=== PATIENT | male | born 1945 | race Caucasian/White ===

== ENCOUNTER 2016-12-21 07:03 | Day surgery (SDC) | payer MEDICARE ==
[2016-12-21] MEDS ORDERED: LIDOCAINE 2% MDV (20MG/ML) 20ML VIAL IV ONE (13:29)
[2016-12-21] MEDS ORDERED: PROPOFOL 10 MG/ML VIAL IV ONE (13:29)
[2016-12-21] MEDS ORDERED: MIDAZOLAM HCL 2MG/2ML VIAL IV ONE (13:29)
--- NOTE | 2016-12-25 15:30 | Operative Note ---
DATE OF SURGERY: 12/21/2016 REQUESTING PHYSICIAN: Corazon Lamar MD, FACP SURGEON: Denise Belcher MD POSTOPERATIVE DIAGNOSES: 1. Left-sided colonic diverticulosis. 2. Poor bowel preparation. Cannot rule out any significant lesions. OPERATION: COLONOSCOPY and exam. REASON FOR PROCEDURE: This is an 82-year-old male with average risk for colorectal cancer who presented for screening colonoscopy. SEDATION: Sedation as per anesthesia. Pulse oximetry was monitored throughout the duration of the procedure to maintain O2 saturation of 90% or greater. Supplemental oxygen was administered via nasal cannula. Cardiac and vital signs were monitored throughout the duration of the procedure and they were stable. PROCEDURE: Description of the procedure of colonoscopy, risks, and alternatives to the procedure including the risk of bleeding and perforation among others were explained to the patient who voiced understanding and agreed to have the procedure done. A physical examination was performed and the patient was found stable for sedation. The patient was then placed in the left lateral position and sedation was initiated. Digital rectal exam was performed and showed small external hemorrhoids with no palpable rectal masses. A lubricated Olympus PCF-180AL colonoscope was then inserted into the rectum under direct visualization and was advanced to the cecum without difficulty. The ileocecal valve and appendiceal orifice were identified and photographed. The colonic mucosa was carefully examined upon insertion of the colonoscope. There were scattered diverticula noted in the sigmoid and descending colon. The bowel preparation was suboptimal. Cannot rule out any significant lesions in the sigmoid colon, transverse colon, ascending colon. The colonoscope was then withdrawn while carefully examining the colonic mucosal surfaces. No other lesions were noted. In the rectum, retroflexion was performed and grade 1 internal hemorrhoids were noted. The colonoscope was then withdrawn and the procedure was terminated. The patient tolerated the procedure well without any complications. The patient remained with stable vital signs and was sent to the recovery room. PLAN AND RECOMMENDATIONS: 1. The patient is to be on a high-fiber diet. 2. The patient is to have repeat colonoscopy for screening within a year given the poor bowel preparation. Thank you for allowing me to participate in the care of this patient. Denise Belcher MD CC: CORAZON LAMAR MD, [facility]
== END 2016-12-21 09:30 | disposition home or self-care (01) ==
LOC: HOP 07:03
PROVIDERS: ATTEND Internal Medicine Gastroenterology
DX: Z12.11 Encounter for screening for malignant neoplasm of colon (principal); K57.30 Diverticulosis of large intestine without perforation or abscess without bleeding; I48.91 Unspecified atrial fibrillation; Z79.01 Long term (current) use of anticoagulants
CPT/HCPCS: 00810; G0121

== ENCOUNTER 2017-05-06 11:56 | Emergency (ER) | payer MEDICARE ==
--- NOTE | 2017-05-06 12:17 | Emergency Department Record ---
History of Present Illness - General Chief complaint: Extremity Problem Stated complaint: LEG INJURY Time Seen by Provider: 05/06/17 12:03 Source: Patient, Family Mode of Arrival: Ambulatory Limitations: No limitations - History of Present Illness Initial comments: 71 yo male presents after a fall about 10 days ago. He was pushing a cart and fell injuring his right thigh and right lower leg. He has developed bruising over the area over the last 10 days. No pain with walking or weight bearing. He has bruising to the right lateral thigh and the right foot and ankle. No weakness. No numbness or tingling. No coordination troubles. He has a tender nodule just above the ankle. He is on Eliquis for atrial fibrillation. No other injuries or complaints from the fall. MD Complaint: Extremity pain, Extremity swelling (bruising) Onset/Timin -: Days(s) Location: Right, Lower Leg History of Same: Yes Radiation: Distal Severity scale (1-10): 4 Quality: Aching Consistency: Constant Improves with: Nothing Worsens with: Palpation, Weight bearing Associated Symptoms: Denies other symptoms - Related Data Home Medications Medication Instructions Recorded Confirmed Last Taken Multivit-Min/FA/Lycopen/Lutein 1 each PO DAILY 05/06/17 05/06/17 1 Day Ago [Centrum Silver Tablet] ~05/05/17 Previous Rx's Medication Instructions Recorded Metoprolol Succinate [Toprol Xl] 12.5 mg PO DAILY #30 tab.er.24h 06/24/16 Allergies Allergy/AdvReac Type Severity Reaction Status Date / Time No Known Drug Allergies Allergy Verified 05/06/17 12:11 Travel Screening - Travel/Exposure Within Last 30 Days Have you traveled within the last 30 days?: No - Travel/Exposure Within Last Year Have you traveled outside the [place] in the last year?: No - Additonal Travel Details Have you been exposed to anyone with a communicable illness?: No - Travel Symptoms Symptom Screening: None Review of Systems Constitutional: Denies: Chills, Fever, Malaise, Weakness Eyes: Denies: Eye discharge ENT: Reports: Other (nose skin cancer). Denies: Congestion, Throat pain Respiratory: Denies: Cough Cardiovascular: Denies: Arrhythmia, Chest pain, Dyspnea on exertion, Palpitations, Syncope Endocrine: Denies: Fatigue Gastrointestinal: Denies: Abdominal pain, Diarrhea, Nausea, Vomiting Genitourinary: Denies: Hematuria Musculoskeletal: Reports: As per HPI, Arthralgia Skin: Reports: As per HPI, Change in color (bruising as noted) Neurological: Denies: Headache Psychiatric: Denies: Anxiety Hematological/Lymphatic: Reports: Easy bruising. Denies: Blood Clots, Easy bleeding, Swollen glands Past Medical History - SOCIAL HISTORY Smoking Status: Never smoker Alcohol Use: None Drug Use: None - RESPIRATORY Hx Respiratory Disorders: No - CARDIOVASCULAR Hx Cardio Disorders: Yes Hx Irregular Heartbeat: Yes (a fib) - NEURO Hx Neuro Disorders: No - GI Hx GI Disorders: No - Hx Genitourinary Disorders: No - ENDOCRINE Hx Endocrine Disorders: No - MUSCULOSKELETAL Hx Musculoskeletal Disorders: No - PSYCH Hx Psych Problems: No - HEMATOLOGY/ONCOLOGY Hx Hematology/Oncology Disorders: Yes Hx Cancer: Yes (BCC forehead & nose) Hx Chemotherapy: No Hx Radiation Therapy: No Family Medical History Any Significant Family History?: Yes Hx Cancer: Father *Cancer Comment: prostate Hx Dementia: Mother Hx Stroke: Father *Stroke Comment: @ age 90 Physical Exam - General General Appearance: Alert, Oriented x3, Cooperative, No acute distress Limitations: No limitations - Head Head exam: Atraumatic, Normocephalic, Normal inspection - Eye Eye exam: Normal appearance. negative: Conjunctival injection, Periorbital swelling, Scleral icterus - ENT ENT exam: Normal exam, Mucous membranes moist Ear exam: Normal external inspection Nasal Exam: Normal inspection Mouth exam: Normal external inspection - Neck Neck exam: Normal inspection - Respiratory Respiratory exam: Normal lung sounds bilaterally. negative: Respiratory distress - Cardiovascular Cardiovascular Exam: Regular rate, Normal rhythm, Normal heart sounds Peripheral Pulses: 2+: Dorsalis Pedis (R) - GI/Abdominal GI/Abdominal exam: Soft. negative: Tenderness - Rectal Rectal exam: Deferred - exam: Deferred - Extremities Extremities exam: Full ROM, Normal capillary refill, Tenderness (3cm tender distal lower anterior leg nodular hematoma). negative: Normal inspection, Calf tenderness, Joint swelling, Pedal edema Image of Full Body: 1 - superficial bruising, soft, no hematoma palpable 2 - bruising, 3cm hematoma anteior distal lower leg, intact pulsed, intact CR, no weakness, no foot drop - Back Back exam: Reports: Normal inspection. Denies: CVA tenderness (R), CVA tenderness (L) - Neurological Neurological exam: Alert, Oriented X3 - Psychiatric Psychiatric exam: Normal affect, Normal mood - Skin Skin exam: Other (bruising) Course Vital Signs 05/06/17 12:05 Temperature 97.7 F Pulse Rate 62 Respiratory 18 Rate Blood Pressure 135/71 Pulse Ox 99 - Reevaluation(s) Reevaluation #1: The patient has superficial bruising Given the distal small anterior leg hematoma an XR was ordered No signs of DVT and unlikely on Eliquis 05/06/17 12:17 05/06/17 12:46 XR no fracture Soft tissue swelling DC with supportive treatment instructions Disposition Disposition: Discharge Clinical Impression: Ecchymosis, Hematoma Disposition: Home, Self-Care Condition: (1) Good Instructions: Hematoma (ED), Ecchymosis (ED) Additional Instructions: Expect bruising to last 4-6 weeks Ice the tender swollen area and wear support hose on the right leg Call your doctor to recheck the area in the next one week Return if you have pain, weak, numb, warm or cold or any new concerns Forms: Patient Portal Access Time of Disposition: 12:47 Quality - Quality Measures Quality Measures: N/A - Blood Pressure Screening Does Patient Have Any of the Following: No Blood Pressure Classification: Pre-Hypertensive BP Reading Systolic Measurement: 135 Diastolic Measurement: 71 Screening for High Blood Pressure: < Pre-Hypertensive BP, F/U Documented > [ [id number]] Pre-Hypertensive Follow-up Interventions: Referral to alternative/primary care provider.
--- NOTE | 2017-05-07 11:09 | RADIOLOGY REPORT ---
EXAM: RIGHT ANKLE HISTORY: INJURY. TECHNIQUE: Three views of the right ankle were obtained. Comparison: None. FINDINGS: Focal soft tissue swelling along the anterolateral aspect of the distal leg. No acute osseous abnormality. The ankle mortise is intact. IMPRESSION: SOFT TISSUE SWELLING ABOVE. NO ACUTE OSSEOUS ABNORMALITY. JOB NUMBER: [id number] MTDD
== END 2017-05-06 13:03 | disposition home or self-care (01) ==
LOC: ER 11:56
DX: S70.11XA Contusion of right thigh, initial encounter (principal); S80.11XA Contusion of right lower leg, initial encounter; S90.01XA Contusion of right ankle, initial encounter; M79.662 Pain in left lower leg; M79.651 Pain in right thigh; I48.91 Unspecified atrial fibrillation; Z79.01 Long term (current) use of anticoagulants; W01.0XXA Fall on same level from slipping, tripping and stumbling without subsequent striking against object, initial encounter
CPT/HCPCS: 99283